=== PATIENT | male | born 1975 | race Caucasian/White ===

== ENCOUNTER 2017-04-06 08:07 | Emergency (ER) | payer OTHER ==
[~2017-04-06] VITALS: Ht 167.6 cm; Wt 104.5 kg
[2017-04-06 08:11] VITALS: Ht 167.6 cm; Wt 104.5 kg
[2017-04-06] MEDS ORDERED: ALBU8.5H3 INH (09:00)
[2017-04-06] MEDS ORDERED: PRED20TA PO (09:00)
[2017-04-06] MEDS ORDERED: AZIT250T94 PO (09:00)
--- NOTE | 2017-04-06 09:02 | ERD ---
ER Documentation Chief Complaint Date/Time DATE: 04/06/17 TIME: 09:02 Chief Complaint SORE THROAT ; HEADACHE; DIZZINESS STARTED TODAY HPI This a 41-year-old male who is complaining of a 2 sore throat cough with productive green sputum with some malaise and fatigue. No fevers no headache no dizziness no chest pain or shortness of breath abdominal pain vomiting or diarrhea ROS All systems reviewed and are negative except as per history of present illness. Medications Home Meds Active Scripts Azithromycin* (Zithromax*) 250 Mg Tablet, 250 MG PO .ZPACK DIRECTED, #6 TAB TAKE 500 MG (2 TABS) THE FIRST DAY THEN 250 MG (1 TAB) DAYS 2-5 Prov:FREDI CLEMENT DO 04/06/17 Albuterol Sulfate* (Proair HFA*) 8.5 Gm Hfa.aer.ad, 2 PUFF INH Q4, #1 INHALER Prov:FREDI CLEMENT DO 04/06/17 Prednisone* (Prednisone*) 20 Mg Tab, 60 MG PO DAILY for 5 Days, TAB Prov:FREDI CLEMENT DO 04/06/17 PMhx/Soc Medical and Surgical Hx: pt denies Medical Hx, pt denies Surgical Hx Hx Alcohol Use: No Smoking Status: Never smoker FmHx Family History: No coronary disease Physical Exam Vitals Vital Signs Date Time Temp Pulse Resp B/P Pulse Ox O2 Delivery O2 Flow Rate FiO2 04/06/17 08:11 99.6 78 19 135/80 98 Physical Exam Const: Well-developed, well-nourished Head: Atraumatic, normocephalic Eyes: Normal Conjunctiva, PERRLA, EOMI, normal sclera, no nystagmus ENT: Normal External Ears, Nose and Mouth, moist mucus membranes. Neck: Full range of motion. No meningismus, no lymphadenopathy. Resp: Clear to auscultation bilaterally, no wheezing, rhonchi, rales Cardio: Regular rate and rhythm, no murmurs, S1 S2 present Abd: Soft, non tender x 4, non distended. Normal bowel sounds, no guarding or rebound, no pulsitile abdominal masses or bruits Skin: No petechiae or rashes, no ecchymosis , no maculopapular rash Back: No midline or flank tenderness Ext: No cyanosis, or edema, FROM x 4, normal inspection, neurovascularly intact x 4 Neur: Awake and alert, STR 5/5 x 4, sensation intact x 4, no focal findings, cerebellum intact Psych: Normal Mood and Affect Procedures/MDM Treat for bronchitis Departure Diagnosis: Primary Impression: Bronchitis Condition: Stable Patient Instructions: Bronchitis, Antiobiotic Treatment (Adult) FREDI CLEMENT DO Apr 06, 2017 09:02
== END 2017-04-06 09:16 | disposition home or self-care (01) ==
LOC: FTE 08:07
DX: J20.9 Acute bronchitis, unspecified (principal)
CPT/HCPCS: 99284